=== PATIENT | female | born 1995 | race Caucasian/White ===

== ENCOUNTER 2017-03-16 21:52 | Emergency (ER) | payer OTHER ==
[2017-03-16 23:27] LABS: BILIRUBIN NEGATIVE (NEGATIVE); BLOOD NEGATIVE Ery/uL (NEGATIVE); CLARITY CLEAR (CLEAR); COLOR YELLOW (YELLOW); GLUCOSE (U) NORMAL (NORMAL); KETONE (U) TRACE mg/dL (NEGATIVE); LEUKOCYTES NEGATIVE Leu/uL (NEGATIVE); NITRITE NEGATIVE (NEGATIVE); PROTEIN NEGATIVE (NEGATIVE); SPECIFIC GRAVITY 1.015 (1.001-1.030); UROBILINOGEN 0.2 mg/dL (0.2-1.0)
[2017-03-17 00:33] LABS: BASOPHIL 0.1 % (0-2); HCT 35.3 % (37.0-47.0); HGB 13.2 g/dl (12.5-16.0); LYMPHOCYTE 4.6 % (15-48); MCH 32.2 pg (25.0-31.0); MCHC 37.4 g/dL (32.0-36.0); MCV 86.1 fL (78.0-100.0); MONOCYTE 5.9 % (0-12); MPV 9.2 fL (6.0-9.5); NEUTROPHIL 88.4 % (41-80); PLT 266 K/uL (150-400); RDW 11.8 % (11.5-14.0); WBC 15.6 K/uL (4.0-10.5)
[2017-03-17 00:48] LABS: CREATININE 0.5 mg/dL (0.5-1.0); POTASSIUM 3.7 mmol/L (3.5-5.1)
== END 2017-03-17 01:50 | disposition home or self-care (01) ==
LOC: FER 21:52
PROVIDERS: Emergency Medicine
DX: J06.9 Acute upper respiratory infection, unspecified (principal); Z88.1 Allergy status to other antibiotic agents
CPT/HCPCS: 36415; 80048; 81003; 85025; 87450; 87804; 87899